=== PATIENT | female | born 1950 | race Caucasian/White ===

== ENCOUNTER 2018-08-19 13:45 | Outpatient (CLI) | payer MEDICARE, BC ==
--- NOTE | 2018-08-19 14:11 | RAD ---
LEFT KNEE FOUR VIEWS: History: Left knee pain. Comparison: 02-11-13 FINDINGS/IMPRESSION: Mild degenerative changes. No fracture, dislocation, or other acute process. POS: C
--- NOTE | 2018-08-19 14:12 | RAD ---
EXAM: RIGHT KNEE TWO VIEWS: History: Right knee pain. Comparison: 12-31-12 FINDINGS/IMPRESSION: Mild degenerative changes. No fracture, dislocation or other acute process. POS: C
== END 2018-08-19 13:46 | disposition home or self-care (01) ==
LOC: BICRAD 13:45
PROVIDERS: ATTEND Internal Medicine Rheumatology
DX: M25.561 Pain in right knee (principal); M25.562 Pain in left knee; M17.0 Bilateral primary osteoarthritis of knee